=== PATIENT | male | born 1985 | race American Indian/Alaskan Native ===

== ENCOUNTER 2020-01-05 12:37 | Emergency (ER) | payer SELFPAY ==
--- NOTE | 2020-01-05 13:34 | Event Note ---
ED Screening Note Date of service: 01/05/20 Time: 13:32 ED Screening Note: c/o chest pain and SOB x1 week mild nonproductive cough per pt +smoker pain is left sided and substernal This initial assessment/diagnostic orders/clinical plan/treatment(s) is/are subject to change based on patients health status, clinical progression and re- assessment by fellow clinical providers in the ED. Further treatment and workup at subsequent clinical providers discretion. Patient/guardian urged not to elope from the ED as their condition may be serious if not clinically assessed and managed. Initial orders include: CXR ekg labs
[2020-01-05 14:28] LABS: Basophils % (Auto) 0.3 % (0.0-1.8); Eosinophils # (Auto) 0.1 K/mm3 (0.0-0.4); Hematocrit 43.2 % (35.5-45.6); Hemoglobin 14.5 gm/dl (11.8-15.2); Lymphocytes # (Auto) 1.3 K/mm3 (1.2-5.4); Mean Corpuscular HGB Conc 34 % (32-34); Mean Corpuscular Volume 95 fl (84-94); Monocytes # (Auto) 0.6 K/mm3 (0.0-0.8); Monocytes % (Auto) 6.4 % (0.0-7.3); Platelet Count 293 K/mm3 (140-440); Red Blood Count 4.57 M/mm3 (3.65-5.03); Red Cell Distribution Width 13.5 % (13.2-15.2)
--- NOTE | 2020-01-05 14:29 | XRay Report ---
CHEST 2 VIEWS INDICATION / CLINICAL INFORMATION: chest pain and SOB. COMPARISON: None available. FINDINGS: SUPPORT DEVICES: None. HEART / MEDIASTINUM: No significant abnormality. LUNGS / PLEURA: No significant pulmonary or pleural abnormality. No pneumothorax. ADDITIONAL FINDINGS: No significant additional findings. IMPRESSION: No significant abnormality Signer Name: Efra Johnson MD FACR Signed: 01/05/2020 2:24 PM Workstation Name: [id number]
[2020-01-05 14:42] LABS: Alanine Aminotransferase 25 units/L (7-56); Albumin 4.2 g/dL (3.9-5); BUN/Creatinine Ratio 9; Blood Urea Nitrogen 8 mg/dL (9-20); Calcium 9.2 mg/dL (8.4-10.2); Hemolysis Index 6
[2020-01-05 16:01] VITALS: BP 146/92
--- NOTE | 2020-01-05 16:56 | Emergency Department Report ---
ED General Adult HPI - General Chief complaint: Chest Pain Stated complaint: CHEST PAINS HEADACHE Time Seen by Provider: 01/05/20 13:31 Source: patient Mode of arrival: Ambulatory Limitations: No Limitations - History of Present Illness Initial comments: Patient is a 34-year-old male who presents emergency room with complaints of chest discomfort that began a week ago. He describes the pain as a tightness. He states that he has a dry, nonproductive cough. He states that he also has headaches and lightheadedness. He states that occasionally he feels wheezing. He denies any nausea, vomiting, diarrhea, fever, leg swelling. He is a current every day smoker 1 pack/day. He denies any recent travel, sick contacts, recent surgery, recent immobilization, hormone use. No past medical history. No allergies medications. He denies any family cardiac history or family history of DVT/PE. - Related Data Previous Rx's Medication Instructions Recorded Last Taken Type Albuterol Sulfate [Proventil Hfa] 6.7 gm IH TID PRN #1 hfa.aer.ad 01/05/20 Unknown Rx Benzonatate [Tessalon Perles] 100 mg PO Q8HR PRN #10 capsule 01/05/20 Unknown Rx Prednisone [predniSONE 10 mg 10 mg PO .TAPER #1 tab.ds.pk 01/05/20 Unknown Rx (6-Day Pack, 21 Tabs)] Allergies Allergy/AdvReac Type Severity Reaction Status Date / Time No Known Allergies Allergy Unverified 01/05/20 13:29 ED Review of Systems ROS: Stated complaint: CHEST PAINS HEADACHE Other details as noted in HPI Comment: All other systems reviewed and negative ED Past Medical Hx - Past Medical History Previous Medical History?: No - Surgical History Past Surgical History?: No - Social History Smoking Status: Current Every Day Smoker Substance Use Type: None - Medications Home Medications: Home Medications Medication Instructions Recorded Confirmed Last Taken Type Albuterol Sulfate [Proventil Hfa] 6.7 gm IH TID PRN #1 hfa.aer.ad 01/05/20 Unknown Rx Benzonatate [Tessalon Perles] 100 mg PO Q8HR PRN #10 capsule 01/05/20 Unknown Rx Prednisone [predniSONE 10 mg 10 mg PO .TAPER #1 tab.ds.pk 01/05/20 Unknown Rx (6-Day Pack, 21 Tabs)] ED Physical Exam - General Limitations: No Limitations General appearance: alert, in no apparent distress - Head Head exam: Present: atraumatic, normocephalic - Eye Eye exam: Present: normal appearance - ENT ENT exam: Present: mucous membranes moist - Respiratory Respiratory exam: Present: normal lung sounds bilaterally. Absent: respiratory distress, wheezes, rales, rhonchi, stridor, chest wall tenderness, accessory mus munira use, decreased breath sounds, prolonged expiratory - Cardiovascular Cardiovascular Exam: Present: regular rate, normal rhythm, normal heart sounds. Absent: systolic murmur, diastolic murmur, rubs, gallop - Neurological Exam Neurological exam: Present: alert, oriented X3 - Psychiatric Psychiatric exam: Present: normal affect, normal mood - Skin Skin exam: Present: warm, dry, intact ED Course Vital Signs 01/05/20 01/05/20 13:28 16:00 Temperature 98.1 F Pulse Rate 88 88 Respiratory 19 16 Rate Blood Pressure 150/100 Blood Pressure 146/92 [Left] O2 Sat by Pulse 100 99 Oximetry ED Medical Decision Making - Lab Data Result diagrams: 01/05/20 14:06 01/05/20 14:06 Lab Results 01/05/20 01/05/20 Range/Units 14:06 14:06 WBC 9.4 (4.5-11.0) K/mm3 RBC 4.57 (3.65-5.03) M/mm3 Hgb 14.5 (11.8-15.2) gm/dl Hct 43.2 (35.5-45.6) % MCV 95 H (84-94) fl MCH 32 (28-32) pg MCHC 34 (32-34) % RDW 13.5 (13.2-15.2) % Plt Count 293 (140-440) K/mm3 Lymph % (Auto) 14.0 (13.4-35.0) % [place] % (Auto) 6.4 (0.0-7.3) % Eos % (Auto) 1.0 (0.0-4.3) % Baso % (Auto) 0.3 (0.0-1.8) % Lymph # (Auto) 1.3 (1.2-5.4) K/mm3 [place] # (Auto) 0.6 (0.0-0.8) K/mm3 Eos # (Auto) 0.1 (0.0-0.4) K/mm3 Baso # (Auto) 0.0 (0.0-0.1) K/mm3 Seg Neutrophils % 78.3 H (40.0-70.0) % Seg Neutrophils # 7.4 (1.8-7.7) K/mm3 Sodium 136 L (137-145) mmol/L Potassium 3.9 (3.6-5.0) mmol/L Chloride 100.6 (98-107) mmol/L Carbon Dioxide 25 (22-30) mmol/L Anion Gap 14 mmol/L BUN 8 L (9-20) mg/dL Creatinine 0.9 (0.8-1.3) mg/dL Estimated GFR > 60 ml/min BUN/Creatinine Ratio 9 % Glucose 102 H (75-100) mg/dL Calcium 9.2 (8.4-10.2) mg/dL Total Bilirubin 0.50 (0.1-1.2) mg/dL AST 18 (5-40) units/L ALT 25 (7-56) units/L Alkaline Phosphatase 60 (35-129) units/L Troponin T < 0.010 (0.00-0.029) ng/mL Total Protein 7.0 (6.3-8.2) g/dL Albumin 4.2 (3.9-5) g/dL Albumin/Globulin Ratio 1.5 % - EKG Data EKG shows normal: sinus rhythm, axis, intervals, QRS complexes, ST-T waves Rate: normal - Radiology Data Radiology results: report reviewed Ordering Physician: JOAN KLINE Date of Service: 01/05/20 Procedure(s): XR chest routine 2V Accession Number(s): [id number] cc: JOAN KLINE Fluoro Time In Minutes: CHEST 2 VIEWS INDICATION / CLINICAL INFORMATION: chest pain and SOB. COMPARISON: None available. FINDINGS: SUPPORT DEVICES: None. HEART / MEDIASTINUM: No significant abnormality. LUNGS / PLEURA: No significant pulmonary or pleural abnormality. No pneumothorax. ADDITIONAL FINDINGS: No significant additional findings. IMPRESSION: No significant abnormality Signer Name: Efra Johnson MD FACR Signed: 01/05/2020 2:24 PM Workstation Name: [email or web address] Transcribed By: MS Dictated By: Efra Johnson MD Electronically Authenticated By: Efra Johnson MD Signed Date/Time: 01/05/201423 DD/ 23 TD/TT: - Medical Decision Making Patient is a 34-year-old male who presents emergency room with complaints of chest discomfort that began a week ago. He describes the pain as a tightness. He states that he has a dry, nonproductive cough. He states that he also has headaches and lightheadedness. He states that occasionally he feels wheezing. He denies any nausea, vomiting, diarrhea, fever, leg swelling. He is a current every day smoker 1 pack/day. He denies any recent travel, sick contacts, recent surgery, recent immobilization, hormone use. No past medical history. No allergies medications. He denies any family cardiac history or family history of DVT/PE. Vitals are stable. Patient is afebrile, no tachycardia, no hypoxia. Labs are normal. Troponin is negative. EKG is within normal limits. Chest x-ray No significant abnormality. Heart score is 1, JACIEL score 0, low risk for cardiac event, ACS unlikely, symptoms have been ongoing for a week. PERC criteria negative for PE, PE unlikely. Symptoms appear most consistent with bronchitis versus pleuritis. No clinical signs of bacterial pneumonia or bacterial bronchitis. Patient given prescription for albuterol inhaler, prednisone, Tessalon Perles. Advised patient Please take medication as prescribed. Follow-up with a primary care doctor. Increase your water intake. Return to emergency room for any new or worsening symptoms. - Differential Diagnosis URI, PNA, asthma, bronchitis, pleuritis, pericarditis, pleural effusion Critical care attestation.: If time is entered above; I have spent that time in minutes in the direct care of this critically ill patient, excluding procedure time. ED Disposition Clinical Impression: Chest tightness, Lightheaded, Tobacco use Acute bronchitis Qualifiers: Bronchitis organism: unspecified organism Qualified Code(s): J20.9 - Acute bronchitis, unspecified Headache Qualifiers: Headache type: unspecified Headache chronicity pattern: acute headache Intractability: not intractable Qualified Code(s): R51.9 - Headache, unspecified Disposition: DC-01 TO HOME OR SELFCARE Is pt being admited?: No Does the pt Need Aspirin: No Condition: Stable Instructions: How to Stop Smoking (ED), Acute Bronchitis (ED) Additional Instructions: Please take medication as prescribed. Follow-up with a primary care doctor. Increase your water intake. Return to emergency room for any new or worsening symptoms. Prescriptions: Prednisone [predniSONE 10 mg (6-Day Pack, 21 Tabs)] 10 mg PO .TAPER #1 tab.ds.pk Albuterol Sulfate [Proventil Hfa] 6.7 gm IH TID PRN #1 hfa.aer.ad PRN Reason: Wheezing Benzonatate [Tessalon Perles] 100 mg PO Q8HR PRN #10 capsule PRN Reason: cough Referrals: PRIMARY CARE, [Primary Care Provider] - 2-3 Days MARTY BRITO MD [Staff Physician] - 2-3 Days [facility] [Provider Group] - 2-3 Days [facility] [place], [LAB/CONTRACT] - 2-3 Days Time of Disposition: 16:59 Print Language: FRISIAN
== END 2020-01-05 17:11 | disposition home or self-care (01) ==
LOC: ED 12:37
DX: J20.9 Acute bronchitis, unspecified (principal); R07.89 Other chest pain; R51.9 Headache, unspecified; R42 Dizziness and giddiness; Z72.0 Tobacco use
CPT/HCPCS: 36415; 71046; 80053; 84484; 85025; 93005